=== PATIENT | male | born 1945 | race Caucasian/White ===

== ENCOUNTER → 2024-03-19 17:17 | Outpatient (CLI) | payer MEDICARE, OTHER, SELFPAY ==
--- NOTE | 2024-03-19 17:30 | DI.RAD_ITS ---
Exam(s) XR FOOT RT COMPLETE EXAM: XR FOOT RT COMPLETE CLINICAL HISTORY: evaluate 3rd toe pathology. TECHNIQUE: 2D digital imaging was performed of the right foot. Three images were obtained. AP, obl ique and lateral views were obtained. COMPARISON: No exams were available for comparison FINDINGS: BONES: No acute fracture is present. No bony destructive lesion is seen. There is a small plantar mich caneal spur. There is a small enthesophyte at the posterior calcaneus. JOINTS: No dislocation present. SOFT TISSUE: Normal. IMPRESSION: No acute fracture or dislocation. DATA REPOSITORY: RADIATION DOSE DELIVERED:
--- NOTE | 2024-03-19 18:21 | DI.VRAD_ITS ---
PROCEDURE INFORMATION: Exam: XR Right Foot Exam date and time: 03/19/2024 5:36 PM Age: 78 years old Clinical indication: Other: Evaluate 3rd toe pathology TECHNIQUE: Imaging protocol: Radiologic exam of the right foot. Views: 3 or more views. Total images: 3 COMPARISON: CR XR FOOT RT LIMITED 03/19/2024 5:36 PM FINDINGS: Bones/joints: No significant bony or joint space abnormality. No fracture. Soft tissues: Unremarkable. IMPRESSION: No acute findings including attention 3rd digit.. Dictated and Authenticated by: Mauro Mercedes MD. Ordering:CELESTE Odell MD
== END ==
PROVIDERS: Visit Provider Nurse Practitioner Family
DX: M79.674 Pain in right toe(s) (principal); M79.671 Pain in right foot; M77.31 Calcaneal spur, right foot
CPT/HCPCS: 73630

== ENCOUNTER 2024-03-19 19:33 | Outpatient (REF) | payer MEDICARE, OTHER, SELFPAY ==
[2024-03-19 21:30] LABS: Abs Immature Grans 0.02 10^3/uL (0.0-0.06); Absolute Basophil Count 0.07 10^3/uL (0.0-0.2); Absolute Eosinophil Count 1.05 10^3/uL (0.0-0.7); Absolute Lymphocyte Count 1.25 10^3/uL (1.2-3.4); Absolute Monocyte Count 0.64 10^3/uL (0.1-0.8); Absolute Neutrophil Count 3.89 10^3/uL (1.2-6.7); Eosinophils % 15.2 %; HGB 9.1 g/dL (13.5-17.5); Immature Grans % 0.3 %; Lymphocytes % 18.1 %; MCH 29.5 pg (27.0-33.0); MCHC 31.4 % (32.0-36.0); MCV 94 fL (80-95); MPV 9.7 fL (8.0-11.0); Monocytes % 9.2 %; Neutrophils % 56.2 %; Platelet Count 247 10^3/uL (130-400); RBC 3.08 10^6/uL (4.36-5.78); RDW 12.6 % (11.8-14.1); RDW-SD 43.7 fL; WBC 6.92 10^3/uL (4.4-10.8)
[2024-03-19 21:38] LABS: Anion Gap 6.8 mmol/L (3-11); BUN 34 mg/dL (7-18); CO2 27.2 mmol/L (21.0-32.0); Calcium 8.5 mg/dL (8.5-10.1); Chloride 108 mmol/L (98-107); Estimated GFR 33.12 (mL/min/1.73m2); Glucose 132 mg/dL (74-106); Potassium 5.1 mmol/L (3.5-5.1); Sodium 142 mmol/L (136-145); Uric Acid 6.9 mg/dL (3.5-7.2)
== END 2024-03-19 19:34 | disposition home or self-care (01) ==
LOC: LBN 19:33
PROVIDERS: Visit Provider Nurse Practitioner Family
DX: L03.90 Cellulitis, unspecified (principal)
CPT/HCPCS: 80048; 84550; 85025